=== PATIENT | female | born 1975 | race Caucasian/White ===

== ENCOUNTER 2017-06-27 10:07 | Emergency (ER) | payer SELFPAY ==
--- NOTE | 2017-06-27 10:29 | EDM.PDOC ---
ED HPI GENERAL MEDICAL PROBLEM - General Chief Complaint: Abdominal Pain Stated Complaint: ABD PAIN(1MTH ) Time Seen by Provider: 06/27/17 10:29 Source of Information: Reports: Patient History Limitations: Reports: No Limitations - History of Present Illness INITIAL COMMENTS - FREE TEXT/NARRATIVE: HISTORY AND PHYSICAL: History of present illness: Patient is a 42-year-old female who presents to the emergency room today with complaints of generalized abdominal pain that radiates around her sides to her back, nausea, and blurred vision 5-7 days area A she reports she feels like she 's as she has not had a menstrual period since May 14, 2017. Has not taken any home tests yet. Reports that yesterday evening she did notice some blood in her urine. Denies any headache, chest pain, shortness of breath, fever or chills. Denies any recent trauma or injury. 7 para 5. Review of systems: As per history of present illness and below otherwise all systems reviewed and negative. Past medical history: As per history of present illness and as reviewed below otherwise noncontributory. Surgical history: As per history of present illness and as reviewed below otherwise noncontributory. Social history: No reported history of drug or alcohol abuse. Family history: As per history of present illness and as reviewed below otherwise noncontributory. Physical exam: General: Nontoxic appearing 42-year-old female. Flat affect. Able to speak in full sentences without shortness of breath. Alert and oriented. HEENT: Atraumatic, normocephalic, pupils reactive, negative for conjunctival pallor or scleral icterus, mucous membranes moist, throat clear, neck supple, nontender, trachea midline. Lungs: Clear to auscultation, breath sounds equal bilaterally, chest nontender. Heart: S1S2, regular rate and rhythm Abdomen: Soft, nondistended, tenderness to the right upper quadrant/left lower quadrant/right lower quadrant to palpation. Negative for masses. Negative for costovertebral tenderness. Pelvis: Stable nontender. Genitourinary: Deferred. Rectal: Deferred. Extremities: Atraumatic, moves all extremities per self, negative for cords or calf pain. Neurovascular unremarkable. Neuro: Awake, alert, oriented. Cranial nerves II through XII unremarkable. Cerebellum unremarkable. Motor and sensory unremarkable throughout. Exam nonfocal. Informed patient of lab results. At this time the patient is still complaining of generalized frontal abdominal pain and would like a CT. I will order a CT abdomen and pelvis. CT results were negative. Discussed these results with the patient, has a UTI. Encouraged her to drink plenty of fluids, take her medications as prescribed. Diagnostics: CBC, CMP, amylase, lipase, UA, hCGU Therapeutics: IV fluid, Toradol, Zofran Impression: UTI, abdominal pain Definitive disposition and diagnosis as appropriate pending reevaluation and review of above. Duration: Week(s): (1 week), Getting Worse (Today) Location: Reports: Abdomen Quality: Reports: Sharp Severity: Moderate Associated Symptoms: Reports: Nausea/Vomiting Abdomen Pain Score (Numeric/FACES): 10 - Related Data Allergies Allergy/AdvReac Type Severity Reaction Status Date / Time No Known Allergies Allergy Verified 06/27/17 10:35 Home Meds: Home Meds . [No Known Home Meds] 06/27/17 [History] ED ROS GENERAL - Review of Systems Review Of Systems: See Below ED EXAM, GENERAL - Physical Exam Exam: See Below (See dictation) Course - Vital Signs Last Recorded V/S: Last Vital Signs Temp 36.2 C 06/27/17 10:31 Pulse 87 06/27/17 10:31 Resp 12 06/27/17 10:31 BP 148/90 H 06/27/17 10:31 Pulse Ox 96 06/27/17 10:31 - Orders/Labs/Meds Labs: Laboratory Tests 06/27/17 06/27/17 06/27/17 Range/Units 10:44 10:44 10:57 WBC 12.20 H (4.0-11.0) K/uL RBC 4.69 (4.30-5.90) M/uL Hgb 11.5 L (12.0-16.0) g/dL Hct 37.4 (36.0-46.0) % MCV 79.7 L (80.0-98.0) fL MCH 24.5 L (27.0-32.0) pg MCHC 30.7 L (31.0-37.0) g/dL RDW Std Deviation 47.3 (28.0-62.0) fl RDW Coeff of Perri 17 H (11.0-15.0) % Plt Count 357 (150-400) K/uL MPV 9.80 (7.40-12.00) fL Neut % (Auto) 69.6 (48.0-80.0) % Lymph % (Auto) 23.2 (16.0-40.0) % [place] % (Auto) 6.2 (0.0-15.0) % Eos % (Auto) 0.8 (0.0-7.0) % Baso % (Auto) 0.2 (0.0-1.5) % Neut # (Auto) 8.5 H (1.4-5.7) K/uL Lymph # (Auto) 2.8 H (0.6-2.4) K/uL Cors[place] # (Auto) 0.8 (0.0-0.8) K/uL Eos # (Auto) 0.1 (0.0-0.7) K/uL Baso # (Auto) 0.0 (0.0-0.1) K/uL Nucleated RBC % 0.0 /100WBC Nucleated RBCs # 0 K/uL Sodium (136-146) mmol/L Potassium (3.5-5.1) mmol/L Chloride (98-110) mmol/L Carbon Dioxide (21-31) mmol/L BUN (6.0-23.0) mg/dL Creatinine (0.6-1.5) mg/dL Est Cr Clr Drug Dosing mL/min Estimated GFR (MDRD) ml/min Glucose (60-110) mg/dL Calcium (8.8-10.8) mg/dL Total Bilirubin (0.1-1.5) mg/dL AST (5-40) IU/L ALT (8-54) IU/L Alkaline Phosphatase (40-150) Total Protein (6.0-8.0) g/dL Albumin (3.5-5.0) g/dL Globulin (2.0-3.5) g/dL Albumin/Globulin Ratio (1.3-2.8) Amylase (10-90) U/L Lipase (7-80) U/L Urine Color YELLOW Urine Appearance SLT CLOUDY Urine pH 6.0 (5.0-8.0) Ur Specific [place] 1.020 (1.001-1.035) Urine Protein NEGATIVE (NEGATIVE) mg/dL Urine Glucose (UA) NEGATIVE (NEGATIVE) mg/dL Urine Ketones NEGATIVE (NEGATIVE) mg/dL Urine Occult Blood SMALL H (NEGATIVE) Urine Nitrite POSITIVE H (NEGATIVE) Urine Bilirubin NEGATIVE (NEGATIVE) Urine Urobilinogen 1.0 (<2.0) EU/dL Ur Leukocyte Esterase TRACE (NEGATIVE) Urine RBC 1-2 (0-2/HPF) Urine WBC 4-6 (0-5/HPF) Ur Epithelial Cells FEW (NONE-FEW) Amorphous Sediment FEW (NEGATIVE) Urine Bacteria 2+ H (NEGATIVE) Urine HCG, Qual NEGATIVE (NEGATIVE) 06/27/17 Range/Units 10:57 WBC (4.0-11.0) K/uL RBC (4.30-5.90) M/uL Hgb (12.0-16.0) g/dL Hct (36.0-46.0) % MCV (80.0-98.0) fL MCH (27.0-32.0) pg MCHC (31.0-37.0) g/dL RDW Std Deviation (28.0-62.0) fl RDW Coeff of Perri (11.0-15.0) % Plt Count (150-400) K/uL MPV (7.40-12.00) fL Neut % (Auto) (48.0-80.0) % Lymph % (Auto) (16.0-40.0) % [place] % (Auto) (0.0-15.0) % Eos % (Auto) (0.0-7.0) % Baso % (Auto) (0.0-1.5) % Neut # (Auto) (1.4-5.7) K/uL Lymph # (Auto) (0.6-2.4) K/uL [place] # (Auto) (0.0-0.8) K/uL Eos # (Auto) (0.0-0.7) K/uL Baso # (Auto) (0.0-0.1) K/uL Nucleated RBC % /100WBC Nucleated RBCs # K/uL Sodium 141 (136-146) mmol/L Potassium 3.7 (3.5-5.1) mmol/L Chloride 106 (98-110) mmol/L Carbon Dioxide 25 (21-31) mmol/L BUN 10 (6.0-23.0) mg/dL Creatinine 1.0 (0.6-1.5) mg/dL Est Cr Clr Drug Dosing 63.28 mL/min Estimated GFR (MDRD) > 60.0 ml/min Glucose 112 H (60-110) mg/dL Calcium 9.8 (8.8-10.8) mg/dL Total Bilirubin 0.6 (0.1-1.5) mg/dL AST 24 (5-40) IU/L ALT 20 (8-54) IU/L Alkaline Phosphatase 60 (40-150) Total Protein 7.8 (6.0-8.0) g/dL Albumin 4.1 (3.5-5.0) g/dL Globulin 3.7 H (2.0-3.5) g/dL Albumin/Globulin Ratio 1.1 L (1.3-2.8) Amylase 41 (10-90) U/L Lipase 14 (7-80) U/L Urine Color Urine Appearance Urine pH (5.0-8.0) Ur Specific [place] (1.001-1.035) Urine Protein (NEGATIVE) mg/dL Urine Glucose (UA) (NEGATIVE) mg/dL Urine Ketones (NEGATIVE) mg/dL Urine Occult Blood (NEGATIVE) Urine Nitrite (NEGATIVE) Urine Bilirubin (NEGATIVE) Urine Urobilinogen (<2.0) EU/dL Ur Leukocyte Esterase (NEGATIVE) Urine RBC (0-2/HPF) Urine WBC (0-5/HPF) Ur Epithelial Cells (NONE-FEW) Amorphous Sediment (NEGATIVE) Urine Bacteria (NEGATIVE) Urine HCG, Qual (NEGATIVE) Meds: Medications Discontinued Medications Generic Name Dose Route Start Last Admin Trade Name Letha PRN Reason Stop Dose Admin Sodium Chloride 1,000 mls @ 999 mls/hr 06/27/17 10:43 06/27/17 11:04 Normal Saline IV 06/27/17 11:43 999 mls/hr STAT ONE Administration Iopamidol 100 ml 06/27/17 12:09 06/27/17 12:10 Isovue Multipack-370 (76%) IVPUSH 06/27/17 12:10 100 ml ONETIME STA Administration Ketorolac Tromethamine 30 mg 06/27/17 10:43 06/27/17 11:53 Toradol IVPUSH 06/27/17 10:44 30 mg ONETIME ONE Administration Ondansetron HCl 4 mg 06/27/17 10:43 06/27/17 11:04 Zofran IVPUSH 06/27/17 10:44 4 mg ONETIME ONE Administration Departure - Departure Time of Disposition: 12:45 Disposition: Home, Self-Care 01 Condition: Good Clinical Impression: UTI (urinary tract infection) Qualifiers: Urinary tract infection type: site unspecified Hematuria presence: without hematuria Qualified Code(s): N39.0 - Urinary tract infection, site not specified - Discharge Information Referrals: PCP,None [Primary Care Provider] - Forms: ED Department Discharge Additional Instructions: The following information is given to patients seen in the emergency department who are being discharged to home. This information is to outline your options for follow-up care. We provide all patients seen in our emergency department with a follow-up referral. The need for follow-up, as well as the timing and circumstances, are variable depending upon the specifics of your emergency department visit. If you don't have a primary care physician on staff, we will provide you with a referral. We always advise you to contact your personal physician following an emergency department visit to inform them of the circumstance of the visit and for follow-up with them and/or the need for any referrals to a consulting specialist. The emergency department will also refer you to a specialist when appropriate. This referral assures that you have the opportunity for followup care with a specialist. All of these measure are taken in an effort to provide you with optimal care, which includes your followup. Under all circumstances we always encourage you to contact your private physician who remains a resource for coordinating your care. When calling for followup care, please make the office aware that this follow-up is from your recent emergency room visit. If for any reason you are refused follow-up, please contact the [facility] emergency department at and ask to speak to the emergency department charge nurse. [facility] Primary care- Internal Medicine and Family [address] [address] 1. Please take your medications as prescribed. Please drink plenty of fluids. 2. Follow-up with your primary care doctor in the next 1-2 days. Return to the ED as needed as discussed
[2017-06-27] MEDS ORDERED: Ketorolac 30 MG/ML SDV IVPUSH ONE (10:43)
[2017-06-27] MEDS ORDERED: Sodium Chloride 0.9% 1,000 ML IV ONE (10:43)
[2017-06-27] MEDS ORDERED: Ondansetron 4 MG/2 ML SDV IVPUSH ONE (10:43)
[2017-06-27 11:38] LABS: CHLORIDE,CL 106 mmol/L (98-110); SODIUM,NA 141 mmol/L (136-146)
[2017-06-27] MEDS ORDERED: Iopamidol 755 MG/ML 500 ML Multipack Bottle IVPUSH STA (12:09)
--- NOTE | 2017-06-27 12:39 | CT ---
CT of the abdomen and pelvis with contrast. HISTORY: Pain TECHNIQUE: Axial CT images were obtained of the abdomen and pelvis following administration of 100 mL of Isovue-370 in the left antecubital fossa without complication. Coronal and sagittal reconstructio ns obtained. FINDINGS: The lung bases are clear, no pleural effusion. The liver, spleen, and adrenal glands appear normal. Pancreas is grossly unremarkable. Cholecystectom y clips are noted. No bulky retroperitoneal lymphadenopathy or abdominal ascites. The kidneys enhance and function symmetrically without evidence of obstructive uropathy. The large and small bowel are normal in caliber without evidence of obstruction. No focal pericolonic inflammation or stranding. Few scattered diverticula are noted without evidence of diverticulitis. T he appendix appears normal. No bulky pelvic lymphadenopathy or free pelvic fluid. The uterus and ovar ies appear grossly normal. No suspicious osseous abnormalities identified. IMPRESSION: 1. No acute findings demonstrated within the abdomen or pelvis.
[2017-06-27 17:50] VITALS: BP 144/67
== END 2017-06-27 12:00 | disposition home or self-care (01) ==
LOC: MW.ED 10:07
DX: N39.0 Urinary tract infection, site not specified (principal)
CPT/HCPCS: 36415; 74177; 80053; 81001; 81025; 82150; 83690; 85025; 96372; 99283; J1885; J2405; J7040; Q9967

== ENCOUNTER 2017-06-30 21:30 | Emergency (ER) | payer SELFPAY ==
--- NOTE | 2017-06-30 21:59 | EDM.PDOC ---
<Noris Oliva - Last Filed: 06/30/17 22:08> ED HPI GENERAL MEDICAL PROBLEM - General Chief Complaint: Lower Extremity Injury/Pain Stated Complaint: pain L calf Time Seen by Provider: 06/30/17 21:35 Source of Information: Reports: Patient History Limitations: Reports: No Limitations - History of Present Illness INITIAL COMMENTS - FREE TEXT/NARRATIVE: HISTORY AND PHYSICAL: History of present illness: [Patient comes to the emergency room stating, " I have a blood clot". She complains of pain and swelling to her left calf for the past couple of days. Most of her pain is behind her left knee. She also complains of left knee and left hip pain. No recent falls or injuries. She has no other complaints or concerns. Quit smoking 3 years ago. Denies any bleeding or clotting disorders in herself for any of her family members. No history of prior DVT or PE. Denies history of arthritis. Denies fever and chills. No chest pain shortness of breath or difficulty breathing. No abdominal pain. No right leg pain.] Review of systems: As per history of present illness and below otherwise all systems reviewed and negative. Past medical history: As per history of present illness and as reviewed below otherwise noncontributory. Surgical history: As per history of present illness and as reviewed below otherwise noncontributory. Social history: No reported history of drug or alcohol abuse. Family history: As per history of present illness and as reviewed below otherwise noncontributory. Physical exam: HEENT: Atraumatic, normocephalic. Lungs: Clear to auscultation, breath sounds equal bilaterally. Heart: S1S2, regular rate and rhythm. Extremities: Calves measure 17 Inches bilaterally. Atraumatic in appearance. Small, tender cord palpated to medial posterior lower leg, just below knee. Is TTP over L calf. + Homans on the left. Neurovascular unremarkable. Neuro: Awake, alert, oriented. Motor and sensory unremarkable throughout. Exam nonfocal. Diagnostics: [Venous doppler ultrasound LLE] Impression: [L lower leg pain] Plan: [] Definitive disposition and diagnosis as appropriate pending reevaluation and review of above. left knee Pain Score (Numeric/FACES): 10 - Related Data Allergies Allergy/AdvReac Type Severity Reaction Status Date / Time No Known Allergies Allergy Verified 06/30/17 21:44 Home Meds: Home Meds . [No Known Home Meds] 06/27/17 [History] Past Medical History - Past Health History Medical/Surgical History: Denies Medical/Surgical History - Infectious Disease History Infectious Disease History: Reports: Chicken Pox - Past Surgical History HEENT Surgical History: Reports: Tonsillectomy GI Surgical History: Reports: Cholecystectomy Female Surgical History: Reports: Tubal Ligation Social & Family History - Family History Family Medical History: Noncontributory - Tobacco Use Smoking Status *Q: Never Smoker - Caffeine Use Caffeine Use: Reports: Soda - Recreational Drug Use Recreational Drug Use: No Review of Systems - Review of Systems Review Of Systems: ROS reveals no pertinent complaints other than HPI. ED EXAM, GENERAL - Physical Exam Exam: See Below Course - Vital Signs Last Recorded V/S: Last Vital Signs Temp 36.7 C 06/30/17 22:48 Pulse 77 06/30/17 22:48 Resp 16 06/30/17 22:48 BP 134/66 06/30/17 22:48 Pulse Ox 95 06/30/17 22:48 - Orders/Labs/Meds Orders: Active Orders 24 hr Category Date Time Status Venous Doppler Lwr Ext Lt [US] Stat Exams 06/30/17 22:05 Taken Departure - Departure Disposition: Home, Self-Care 01 Condition: Good Clinical Impression: Leg pain - Discharge Information Instructions: Hip Pain, Knee Pain, [id number] Referrals: PCP,None [Primary Care Provider] - Forms: ED Department Discharge Additional Instructions: The following information is given to patients seen in the emergency department who are being discharged to home. This information is to outline your options for follow-up care. We provide all patients seen in our emergency department with a follow-up referral. The need for follow-up, as well as the timing and circumstances, are variable depending upon the specifics of your emergency department visit. If you don't have a primary care physician on staff, we will provide you with a referral. We always advise you to contact your personal physician following an emergency department visit to inform them of the circumstance of the visit and for follow-up with them and/or the need for any referrals to a consulting specialist. The emergency department will also refer you to a specialist when appropriate. This referral assures that you have the opportunity for follow-up care with a specialist. All of these measure are taken in an effort to provide you with optimal care, which includes your follow-up. Under all circumstances we always encourage you to contact your private physician who remains a resource for coordinating your care. When calling for follow-up care, please make the office aware that this follow-up is from your recent emergency room visit. If for any reason you are refused follow-up, please contact the [facility] emergency department at and asked to speak to the emergency department charge nurse. [address] [address] Establish care and follow-up with a provider at the clinic listed above in 3-4 days. Return to ER as needed as discussed. <Adilson Ford - Last Filed: 07/01/17 03:07> Departure - Departure Time of Disposition: 03:07
[2017-06-30 22:50] VITALS: BP 134/66
--- NOTE | 2017-07-03 10:11 | US ---
EXAM DATE: 06/30/17 PATIENT'S AGE: 42 Patient: [address] Facility: [place], [place] Site . Site : [id number] Study: US Extremity Venous LEFT [id number]/30/2017 10:47:50 PM Ordering Physician: Doctor Paris Final Report: INDICATION: Left leg pain. TECHNIQUE: Ultrasound venous duplex lower left extremity. Compression venous exam was performed using capps-scale, color Doppler, and spectral Doppler analysis. COMPARISON: None. FINDINGS: Sonographic imaging demonstrates the left common femoral, deep femoral, superficial femoral, popliteal, posterior tibial veins to be fully compressible with normal color Doppler blood flow. Right common femoral vein not evaluated. IMPRESSION: No sign of deep venous thrombosis. Dictated by Alex Davis MD @ 06/30/2017 10:50:52 PM Dictated by: Alex Davis MD @ 06/30/2017 22:51:00 (Electronic Signature) Report Signed by Proxy. MERLENE
== END 2017-06-30 23:04 | disposition home or self-care (01) ==
LOC: MW.ED 21:30
DX: M79.662 Pain in left lower leg (principal); Z90.49 Acquired absence of other specified parts of digestive tract; Z98.890 Other specified postprocedural states
CPT/HCPCS: 93971-26-LT; 93971-LT; 99282; 99283-25